=== PATIENT | male | born 1945 ===

== ENCOUNTER 2016-09-01 08:46 | Outpatient (CLI) | payer MEDICARE, OTHER | END 2016-09-01 08:47 | disposition home or self-care (01) | DX: A41.02 Sepsis due to Methicillin resistant Staphylococcus aureus (principal) ==

== ENCOUNTER 2016-09-05 08:00 | Outpatient (CLI) | payer MEDICARE, OTHER ==
[2016-09-05 13:02] LABS: BASOPHILS # (AUTO) 0.1 10^3/uL (0.0-0.1); EOSINOPHILS # (AUTO) 0.5 10^3/uL (0.0-0.7); EOSINOPHILS % (AUTO) 7.6 %; HCT - HEMATOCRIT 30.3 % (42.0-52.0); HGB - HEMOGLOBIN 10.2 g/dL (14.0-18.0); LYMPHOCYTES # (AUTO) 0.8 10^3/uL (1.5-3.5); LYMPHOCYTES % (AUTO) 11.1 %; MEAN CORPUSCULAR HEMOGLOBIN 28.3 pg (27.0-31.0); MEAN CORPUSCULAR HGB CONC 33.7 g/dL (32.0-36.0); MEAN PLATELET VOLUME 7.8 fL (7.4-11.4); MONOCYTES # (AUTO) 0.5 10^3/uL (0.0-1.0); MONOCYTES % (AUTO) 7.6 %; NEUTROPHILS % (AUTO) 72.7 %; RED CELL DISTRIBUTION WIDTH 16.3 % (12.0-15.0); UNCORRECTED WHITE BLOOD COUNT 6.8 x10^3/uL; WHITE BLOOD COUNT 6.8 x10^3/uL (4.8-10.8)
[2016-09-05 13:06] LABS: ALBUMIN/GLOBULIN RATIO 0.6 (1.0-2.2); BILIRUBIN,TOTAL 0.8 mg/dL (0.2-1.0); BUN - BLOOD UREA NITROGEN 16 mg/dL (6-20); CALCIUM 8.8 mg/dL (8.5-10.3); CARBON DIOXIDE - CO2 25 mmol/L (21-32); CHLORIDE 100 mmol/L (101-111); CREATININE 1.9 mg/dL (0.6-1.2); GFR - MDRD 35 (>89); GLUCOSE 139 mg/dL (70-100); POTASSIUM 4.3 mmol/L (3.5-5.0); SODIUM 136 mmol/L (135-145); TOTAL PROTEIN 7.3 g/dL (6.7-8.2)
== END 2016-09-05 08:01 | disposition home or self-care (01) ==
LOC: LAB 08:00
PROVIDERS: ATTEND Internal Medicine Infectious Disease
DX: A41.02 Sepsis due to Methicillin resistant Staphylococcus aureus (principal)
CPT/HCPCS: 80053; 85025

== ENCOUNTER 2016-10-16 19:36 | Emergency (ER) | payer MEDICARE, OTHER ==
[2016-10-16 19:45] VITALS: BP 109/68
--- NOTE | 2016-10-16 20:30 | ED Physician Documentation ---
History of Present Illness - Stated complaint Stated Complaint: MALE - Chief complaint Chief Complaint: General - History obtained from History obtained from: Patient, Family - History of Present Illness Timing: Today Pain level max: 0 Pain level now: 0 Improved by: nothing Worsened by: nothing - Additonal information Additional information: Patient is a 71-year-old male who currently has bilateral nephrostomy tubes for blocked ureters. States that he had his Ardon catheter removed 4 days ago and is concerned that he might be retaining urine. Wanted to come in for a bladder scan. No fevers. No vomiting. No abdominal pain. Otherwise feels normal. Review of Systems Constitutional: denies: Fever, Chills Respiratory: denies: Cough GI: denies: Abdominal Pain, Nausea, Vomiting, Diarrhea Skin: denies: Rash Musculoskeletal: denies: Neck pain, Back pain Neurologic: denies: Headache PD PAST MEDICAL HISTORY - Past Medical History Past Medical History: Yes PD ED PE NORMAL - Vitals Vital signs reviewed: Yes - General General: Alert and oriented X 3, No acute distress - HEENT HEENT: Moist mucous membranes - Cardiac Cardiac: RRR - Respiratory Respiratory: No respiratory distress - Abdomen Abdomen: Soft, Non tender, Other (colostomy tube and B nephrostomy tubes in place. No signs of infection.) - Derm Derm: Warm and dry - Neuro Neuro: Alert and oriented X 3 - Psych Psych: Normal mood, Normal affect Results - Vitals Vitals: Vital Signs - 24 hr 10/16/16 19:40 Temperature 36.2 C L Heart Rate 105 H Respiratory 16 Rate Blood Pressure 109/68 O2 Saturation 99 Oxygen O2 Source Room air PD MEDICAL DECISION MAKING - ED course Complexity details: reviewed results, re-evaluated patient, considered differential, d/w patient ED course: Patient is a 71-year-old male with bilateral nephrostomy tubes who is concerned that there may be urine collecting in his bladder. There appears to be approximately 50 mL's of urine on bladder scan. Confirmed with bedside ultrasound. On ultrasound but does appear to be a small cylindrical object in the bladder? He has a urology appointment this week and will have him follow- up with urology for further evaluation and care. Patient and family counseled regarding signs and symptoms for which I believe and urgent re-evaluation would be necessary. Patient with good understanding of and agreement to plan and is comfortable going home at this time This document was made in part using voice recognition software. While efforts are made to proofread this document, sound alike and grammatical errors may occur. Departure - Departure Disposition: 01 Home, Self Care Clinical Impression: Normal exam Condition: Good Instructions: ED Screening Exam Medical Nonurgent Follow-Up: Juju Boswell PA-C [Primary Care Provider] - Within 1 week Comments: There appears to be about 50-100ml of urine in your bladder tonight. There does appear to be a small cylindrical object in your bladder as well. Urology may be able to better characterize this for you. Return if you worsen. Discharge Date/Time: 10/16/16 20:40
== END 2016-10-16 20:40 | disposition home or self-care (01) ==
LOC: ED 19:36
DX: Z00.8 Encounter for other general examination (principal); Z93.6 Other artificial openings of urinary tract status
CPT/HCPCS: 51798; 99282; 99283

== ENCOUNTER 2016-11-16 12:50 | Outpatient (CLI) | payer MEDICARE, OTHER ==
[2016-11-16 16:54] LABS: ALBUMIN/GLOBULIN RATIO 0.8 (1.0-2.2); BILIRUBIN,TOTAL 0.4 mg/dL (0.2-1.0); CALCIUM 8.7 mg/dL (8.5-10.3); CREATININE 1.4 mg/dL (0.6-1.2); POTASSIUM 4.1 mmol/L (3.5-5.0)
== END 2016-11-16 12:51 ==
LOC: LAB.R 12:50
PROVIDERS: ATTEND Internal Medicine
DX: N18.9 Chronic kidney disease, unspecified (principal)
CPT/HCPCS: 80053